=== PATIENT | female | born 1985 | race Caucasian/White ===

== ENCOUNTER 2016-11-15 10:59 | Emergency (ER) | payer OTHER ==
[2016-11-15 11:22] VITALS: BP 153/75
--- NOTE | 2016-11-15 13:13 | UC ---
Osvaldo Jacinto Matthew, scribed for Baljeet Cruz MD on 11/15/16 at 1139 . Throat Pain/Nasal Juanpablo HPI - HPI Summary HPI Summary: A 31 y/o female presents to [facility] [place] with a sore throat since a couple of weeks ago , which has worsened in the last 2 days. Associated symptoms include pain with swallowing, swollen lymph nodes, and headache. The patient denies difficulty swallowing, drooling, and fever. The patient daughter was recently Dx with STREP throat. Her symptoms worsen at night and the patient has increased pain when looking up. PMHx of c-diff. SHx includes ulnar transposition, gallbladder removal, . FHx of graves disease. - History of Current Complaint Chief Complaint: UCGeneralIllness Stated Complaint: SORE THROAT Time Seen by Provider: 11/15/16 11:27 Hx Obtained From: Patient Hx Last Menstrual Period: 2014 ?: No Onset/Duration: Gradual Onset, Lasting Weeks, Still Present Severity: Mild Pain Intensity: 4 Pain Scale Used: 0-10 Numeric Cough: None Associated Signs & Symptoms: Positive: Other - pain with swallowing. Negative: Dysphagia, FB Sensation, Drooling, Fever - Allergies/Home Medications Allergies/Adverse Reactions: Allergies Allergy/AdvReac Type Severity Reaction Status Date / Time No Known Allergies Allergy Verified 11/15/16 11:22 Home Medications: Home Medications Colesevelam HCl [Welchol] 625 mg PO BID 11/15/16 [History Confirmed 11/15/16] Levothyroxine TAB* [Synthroid TAB*] 50 mcg PO DAILY 11/15/16 [History Confirmed 11/15/16] Norethindrone (Contraceptive) [Jolivette] 1 PO DAILY 11/15/16 [History] PMH/Surg Hx/FS Hx/Imm Hx Endocrine History Of: Reports: Thyroid Disease - [facility] - Surgical History Surgical History: Yes Surgery Procedure, Year, and Place: CHOLECYSTECTOMY 2014. LEFT ULNAR NERVE TRANSPOSITION. 2010 - Family History Family History: FHx of graves disease - Social History Alcohol Use: Rare Substance Use Type: None Smoking Status (MU): Never Smoked Tobacco Review of Systems Constitutional: Negative Skin: Negative Eyes: Negative ENT: Sore Throat, Other - Swollen lymph nodes; Pain with swallowing Respiratory: Negative Cardiovascular: Negative Gastrointestinal: Negative Genitourinary: Negative Motor: Negative Neurovascular: Negative Musculoskeletal: Negative Neurological: Headache Psychological: Negative All Other Systems Reviewed And Are Negative: Yes Physical Exam Triage Information Reviewed: Yes Vital Signs: Initial Vital Signs Temp 98.3 F 11/15/16 11:17 Pulse 84 11/15/16 11:17 Resp 16 11/15/16 11:17 BP 153/75 11/15/16 11:17 Pulse Ox 100 11/15/16 11:17 Vital Signs Reviewed: Yes - Additional Comments VITAL SIGNS: Reviewed. GENERAL: Patient is a well developed and nourished female who is lying comfortable in the stretcher. Patient is not in any acute respiratory distress. HEAD AND FACE: Normocephalic EYES: PERRLA, EOMI x 2. EARS: Hearing grossly intact. MOUTH: Oropharynx within normal limits. No trismus, no difficulty swallowing, and no drooling; Minimal Pharyngeal erythema NECK: Supple, trachea is midline, no JVD, no carotid bruit. Right sided swollen lymph node on the neck CHEST: Symmetric, no tenderness at palpation LUNGS: Clear to auscultation bilaterally. No wheezing or crackles. CVS: Regular rate and rhythm, S1 and S2 present, no murmurs or gallops appreciated. ABDOMEN: Soft, non-tender. Bowel sounds are normal. No abdominal abnormal pulsations. EXTREMITIES: Full ROM in all major joints, no edema, no cyanosis or clubbing. NEURO: Alert and oriented x 3. No acute neurological deficits. Speech is normal and follows commands. SKIN: Dry and warm Throat Pain/Nasal Course/Dx - Course Assessment/Plan: A 31 y/o female presents to [facility] – [place] with a sore throat since a couple of weeks ago, which has worsened in the last 2 days. Associated symptoms include pain with swallowing, swollen lymph nodes, and headache. The patient denies difficulty swallowing, drooling, and fever. The patient daughter was recently Dx with STREP throat. Her symptoms worsen at night and the patient has increased pain when looking up. PMHx of c-diff. SHx includes ulnar transposition , gallbladder removal, . FHx of graves disease. Rapid STREP is negative and therefore I believe the patient symptoms are secondly to viral phalangitis. Since the patient does not have trismus, difficulty swallowing, and no fever the patient will be discharged home with follow-up from their PCP. The patient is hemodynamically stable and A&Ox3. - Differential Dx/Diagnosis Provider Diagnoses: Viral pharyngitis Discharge - Discharge Plan Condition: Stable Disposition: HOME Patient Education Materials: Pharyngitis (ED) Referrals: Natan Chung NP [Primary Care Provider] - 4 Days Additional Instructions: Please follow-up with your primary care physician. The documentation as recorded by the Osvaldo damon Matthew accurately reflects the service I personally performed and the decisions made by , Baljeet Cruz MD.
== END 2016-11-15 13:00 | disposition home or self-care (01) ==
LOC: UCEAST 10:59
DX: J02.9 Acute pharyngitis, unspecified (principal); E06.3 Autoimmune thyroiditis; Z90.49 Acquired absence of other specified parts of digestive tract
CPT/HCPCS: 87651; 99201; G0463

== ENCOUNTER 2017-11-14 13:08 | Emergency (ER) | payer OTHER ==
[2017-11-14 14:19] VITALS: BP 100/58
--- NOTE | 2017-11-14 16:01 | UC ---
Thomas Jacinto Gabriel, scribed for Jannette Ely MD on 11/14/17 at 1452 . FLU HPI - HPI Summary HPI Summary: This patient is a 32 year old F [place] [facility] [place] partner with a chief complaint of flu like symptoms that began yesterday around 1900. Pt is 9 weeks and called her OB who suggested she come in for a flu test. The patient rates the pain 4/10 in severity. Symptoms alleviated by Tylenol. Patient reports fever of 101.8, myalgia, chills, and diarrhea. Patient denies cough, nasal discharge, dysuria, urinary frequency, ear pain, and sore throat. . Her younger child is currently ill. - History of Current Complaint Chief Complaint: UCGeneralIllness Stated Complaint: FEVER, HEADACHE Time Seen by Provider: 11/14/17 14:46 Hx Obtained From: Patient Hx Last Menstrual Period: 09/14/17 Onset/Duration: Lasting Days - 1, Still Present Severity Currently: Moderate Severity Initially: Moderate Pain Intensity: 4 Pain Scale Used: 0-10 Numeric Associated Signs & Symptoms: Positive: Fever, F/C, Myalgia, Diarrhea. Negative : Sore Throat - Allergy/Home Medications Allergies/Adverse Reactions: Allergies Allergy/AdvReac Type Severity Reaction Status Date / Time No Known Allergies Allergy Verified 11/14/17 14:08 Home Medications: Home Medications Acetaminophen [Acetaminophen Extra Strength] 1,000 mg PO ONCE 11/14/17 [History Confirmed 11/14/17] Magnesium Glycinate [Mag Glycinate] 200 mg PO DAILY 11/14/17 [History Confirmed 11/14/17] PMH/Surg Hx/FS Hx/Imm Hx Endocrine History: Thyroid Disease - basil's GI/ History: Other Other GI/ History: IBS - Surgical History Surgical History: Yes Surgery Procedure, Year, and Place: CHOLECYSTECTOMY 2014. LEFT ULNAR NERVE TRANSPOSITION. 2010 - Family History Family History: FHx of graves disease - Social History Occupation: Employed Full-time - [employer] Lives: With Family Alcohol Use: None Substance Use Type: None Smoking Status (MU): Never Smoked Tobacco Review of Systems Constitutional: Fever, Chills Gastrointestinal: Diarrhea - history of IBS, tendency to diarrhea whenever she feels ill. Onset today, has had 3 loose stools this afternoon. Musculoskeletal: Myalgia Is Patient Immunocompromised?: No All Other Systems Reviewed And Are Negative: Yes Physical Exam Triage Information Reviewed: Yes Appearance: Ill-Appearing - looks mildly unwell, well hydrated. Vital Signs: Initial Vital Signs Temp 98.9 F 11/14/17 14:10 Pulse 103 11/14/17 14:10 Resp 20 11/14/17 14:10 BP 100/58 11/14/17 14:10 Pulse Ox 99 11/14/17 14:10 Eyes: Positive: Conjunctiva Clear ENT: Positive: Pharynx normal Neck: Positive: Supple, Nontender, No Lymphadenopathy Respiratory: Positive: Lungs clear, Normal breath sounds Cardiovascular: Positive: RRR, No Murmur Abdomen Description: Positive: Nontender, No Organomegaly, Soft Musculoskeletal Exam: Normal Neurological: Positive: Alert, Muscle Tone Normal Psychological Exam: Normal Skin Exam: Normal Flu Course/Dx - Course Course Of Treatment: Pt medications reviewed this visit. - Differential Dx/Diagnosis Differential Diagnosis/HQI/PQRI: Influenza, Upper Respiratory Infection Provider Diagnoses: viral illness, flu negative. Discharge - Sign-Out/Discharge Documenting (check all that apply): Discharge - Discharge Plan Condition: Stable Disposition: HOME Patient Education Materials: Viral Syndrome (ED) Referrals: Candelaria Garrett MD [Primary Care Provider] - Additional Instructions: Influenza testing is negative. Continue to control fever with use of acretaminophen and ensure high intake of fluids. Follow up if you have increasing symptoms such as cough or breathlessness, or fever persists beyond 4 days. Your symptoms are consistent with a viral illness which will likely be self- limiting. - Billing Disposition and Condition Condition: STABLE Disposition: HOME The documentation as recorded by the Thomas damon Gabriel accurately reflects the service I personally performed and the decisions made by me, Jannette Ely MD.
== END 2017-11-14 16:08 | disposition home or self-care (01) ==
LOC: UCEAST 13:08
DX: O26.891 Other specified pregnancy related conditions, first trimester (principal); B34.9 Viral infection, unspecified; Z3A.09 9 weeks gestation of pregnancy; E06.3 Autoimmune thyroiditis; K58.9 Irritable bowel syndrome, unspecified; E55.9 Vitamin D deficiency, unspecified; E83.42 Hypomagnesemia
CPT/HCPCS: 36415; 82306; 83735; 84439; 84443; 84479; 84481; 87502; 99211; G0463

== ENCOUNTER 2018-06-19 00:55 | Inpatient (IN) | payer OTHER ==
[2018-06-19] MEDS ORDERED: Penicillin G Potassium IV* 5,000,000 UNITS in NS 0.9% 100 ML* 100 ML IVPB ONE (01:28)
[2018-06-19] MEDS ORDERED: Penicillin G Potassium IV* 5 MILLION.UNITS VIAL ONE (01:30)
--- NOTE | 2018-06-19 01:38 | HP ---
General Information - Reason for Visit Irreg ctx throughout the day, but increased intensity about 2-3 hrs ago. Pt with h/o and subsequent . Desires another . - General Information Maternal Age: 33 Grav: 3 Para: 2 SAB: 0 IEA: 0 Estimated Due Date: 06/21/18 Determined By: LMP Gestational Age in Weeks/Days: 39+5 wks Maternal Blood Type and Rh: O Positive - Results this Serology/RPR Result: Non-Reactive Rubella Result: Immune HBsAg Result: Negative HIV Result: Negative GBS Culture Result: Positive Past Medical History Delivery History: Hx C/Section, Hx Uncomplicated Vaginal Delivery Pertinent Past Medical History: See Records Past Medical History Comment: Dwight's, IBS, migraines Pertinent Past Surgical History: See Records Past Surgical History Comment: , cholecytectomy, ulnar nerve Pertinent Family History: Non-Contributory - Antepartal Records Antepartal Records: Reviewed, Complicated by: - h/o and Review of Systems Constitutional: Uncomfortable CV Complaint: No Respiratory: Shortness of Breath: No Gastrointestinal: No Nausea/Vomiting Genitourinary: No Dysuria, No Bleeding, No Leaking Fluid Musculoskeletal: Contractions Neurological: No Headache Movement: Normal Exam Allergies/Adverse Reactions: Allergies No Known Allergies Allergy (Verified 11/14/17 14:08) 156/88 (during ctx), afebrile - Measurements Height: 5 ft 7 in Weight: 161 lb Weight in lbs: 161.936494 Body Mass Index (BMI): 25.2 Pre- Weight: 124 lb Weight Gained This : 37 lbs and 0 ozs - Exam Breast: Breast Exam Deferred Heart: Normal Rhythm/Heart Sounds HEENT: No Significant Findings Lungs: Clear Bilaterally Rectal: Rectal Exam Deferred - Abdominal Exam Abdomen Exam: Non-Tender, Fundal Height Consistent with Dates - Ultrasound/Biophysical Profile Ultrasound Status: Not Done Targeted Exam Findings Estimated Weight: 7lb 8oz Cervical Exam: 6cm Effacement: 90% Station: 0 Presenting Part: Vertex Membrane Status: Intact EFM Findings - External Monitor Findings Baseline Heart Rate: 125 External Monitor Findings: Accelerations Present, No Pattern of Variable or Late Decelerations, Variability Moderate Contractions: Regular, Strong Contraction Frequency: Q2-3 Assessment/Plan - Assessment 39+5 wks with h/o C/S and in active labor. Very reassuring status. Desires another TOLAC. We reviewed risks including emergent C/S and uterine rupture, possible injury, etc and pt desires to proceed. - Obstetrical Risk Factors Obstetrical Risk Factors: GBS Positive, Previous C/Section in Labor - Plan Plan: Antibiotic Prophylaxis, Admit - Anticipate Vaginal Delivery Plan Comment: Dr. Doran from anesthesia aware of and will come in to place epidural. - Date/Time of Admission Date of Admission: 06/19/18 Time of Admission: 01:39
[2018-06-19] MEDS ORDERED: OBEPIDURAL* 250 ML EPIDURAL ONE (01:42)
[2018-06-19] MEDS ORDERED: fentaNYL* 50 MCG/ML 2 ML VIAL (100 MCG VIAL) ONE (01:52)
[2018-06-19 01:55] LABS: ABS Basophils 0 10^3/ul (0-0.2); ABS Eosinophils 0.1 10^3/ul (0-0.6); ABS Lymphocytes 2.1 10^3/ul (1.0-4.8); ABS Monocytes 0.7 10^3/ul (0-0.8); ABS Neutrophils 7.7 10^3/ul (1.5-7.7); ABS Nucleated RBC 0 10^3/ul; Eosinophil % 0.6 % (0-6); Hematocrit 40 % (35-47); Lymphocyte % 20.1 % (25-47); Mean Corpuscular HGB Conc 33 g/dl (31-36); Mean Corpuscular Hemoglobin 28 pg (27-31); Mean Corpuscular Volume 85 fL (80-97); Mean Platelet Volume 8.4 um3 (7.4-10.4); Nucleated Red Blood Cells % 0; Platelet Count 229 10^3/ul (150-450); Red Blood Count 4.68 10^6/ul (4.00-5.40); Red Cell Distribution Width 16 % (10.5-15); White Blood Count 10.7 10^3/ul (3.5-10.8)
[2018-06-19] MEDS ORDERED: Sodium Citrate/Citric Acid* 15 ML UDC PO PRN (02:36)
[2018-06-19] MEDS ORDERED: Famotidine TAB* 20 MG PO PRN (02:36)
[2018-06-19] MEDS ORDERED: Phenylephrine IV* 40 MCG/ML 10 ML SYRINGE IV PUSH PRN ×2 (02:36)
[2018-06-19] MEDS ORDERED: OBEPIDURAL* 250 ML EPIDURAL SCH (03:00)
[2018-06-19] MEDS ORDERED: Penicillin G Potassium IV* 2,500,000 UNITS in NS 0.9% 100 ML* 100 ML IVPB SCH (05:30)
[2018-06-19] MEDS ORDERED: Oxytocin in LR* 20 UNITS/1,000 ML BAG IVPB ONE (05:48)
[2018-06-19] MEDS ORDERED: Oxytocin in LR* 20 UNITS/1,000 ML BAG IVPB SCH ×2 (07:00→08:00)
[2018-06-19] MEDS ORDERED: Dibucaine 1% 28.35 GM TUBE PR PRN (07:22)
[2018-06-19] MEDS ORDERED: Acetaminophen TAB* 325 MG PO PRN (07:22)
[2018-06-19] MEDS ORDERED: Witch Hazel PAD* JAR TOPICAL PRN (07:22)
[2018-06-19] MEDS ORDERED: Levothyroxine TAB* 50 MCG TAB PO SCH (07:30)
--- NOTE | 2018-06-19 07:32 | PROCNOTE ---
[facility] OB: Delivery Note - Delivery A Date of : 06/19/18 Time of : 06:59 Sex: Male Score 1 Minute: 8 Score 5 Minutes: 9 Gestational Age in Weeks and Days at Delivery: 39 Weeks and 5 Days Delivery Method: Spontaneous Vaginal Labor: Spontaneous Did Patient attempt ?: Yes, Successful Amniotic Fluid: Clear Estimated Blood Loss: 400 Anesthesia/Analgesia: CEI for Labor Delivered By: Lorna Wolff - Nursery Level of Nursery: Regular/Bedside - Perineum Perineal Injury: 2nd Degree Perineal Injury Comment: Repaired with 3-0 Vicryl Rapide Perineal Repair: By Delivering Practioner - Events Delivery Events of Note: Pitocin During Labor, Full Course of Antibiotics Delivery Events of Note Comment: Pt admitted at 5+ cm, active labor. PCN started, AROM after about 2 hours due to some decels, clear fluid. Pt received epidural which worked well. Pt reached C/C/+1 and pushed for about 1.5 hrs. Head delivered in a controlled fashion, shoulders delivered easily. Nuchal cord x1 reduced. Infant placed on mother's abd. Placenta delivered spontaneously and intact.
[2018-06-19] MEDS ORDERED: Levothyroxine TAB* 75 MCG TAB PO SCH (08:00)
[2018-06-19] MEDS ORDERED: Simethicone TAB* 80 MG TAB.CHEW PO SCH (08:30)
[2018-06-19] MEDS: Docusate CAP* 100 MG PO SCH ×3 (09:41→20:05)
[2018-06-19] MEDS: Ibuprofen TAB* 600 MG PO PRN ×2 (09:42→16:33)
[2018-06-20] MEDS: Ibuprofen TAB* 600 MG PO PRN ×2 (05:07→16:38)
[2018-06-20 06:53] LABS: ABS Basophils 0 10^3/ul (0-0.2); ABS Eosinophils 0.1 10^3/ul (0-0.6); ABS Lymphocytes 1.7 10^3/ul (1.0-4.8); ABS Monocytes 0.4 10^3/ul (0-0.8); ABS Neutrophils 5.9 10^3/ul (1.5-7.7); ABS Nucleated RBC 0 10^3/ul; Eosinophil % 0.8 % (0-6); Hematocrit 35 % (35-47); Hemoglobin 11.6 g/dl (12.0-16.0); Lymphocyte % 20.7 % (25-47); Mean Corpuscular HGB Conc 33 g/dl (31-36); Mean Corpuscular Hemoglobin 28 pg (27-31); Mean Corpuscular Volume 85 fL (80-97); Mean Platelet Volume 8.2 um3 (7.4-10.4); Nucleated Red Blood Cells % 0; Platelet Count 185 10^3/ul (150-450); Red Blood Count 4.09 10^6/ul (4.00-5.40); Red Cell Distribution Width 16 % (10.5-15); White Blood Count 8.1 10^3/ul (3.5-10.8)
[2018-06-20] MEDS ORDERED: Ferrous Gluconate TAB* 324 MG TAB PO SCH (09:00)
[2018-06-20] MEDS: Docusate CAP* 100 MG PO SCH ×2 (09:37→13:28)
[2018-06-20] MEDS ORDERED: Levothyroxine TAB* 75 MCG TAB PO SCH (12:30)
[2018-06-21] MEDS: Ibuprofen TAB* 600 MG PO PRN ×2 (00:10→08:25)
[2018-06-21 08:45] VITALS: BP 134/74
[2018-06-21] MEDS: Docusate CAP* 100 MG PO SCH (09:34)
== END 2018-06-21 11:14 | disposition home or self-care (01) | DRG 807 ==
LOC: MCHOBOUT 00:55 → MCHOB 01:17
PROVIDERS: ADMIT Obstetrics & Gynecology; ATTEND Obstetrics & Gynecology
PROC: 10E0XZZ Delivery of Products of Conception, External Approach (ICD-10-PCS; principal; 2018-06-19)
PROC: 0KQM0ZZ Repair Perineum Muscle, Open Approach (ICD-10-PCS; 2018-06-19)
PROC: 10907ZC Drainage of Amniotic Fluid, Therapeutic from Products of Conception, Via Natural or Artificial Opening (ICD-10-PCS; 2018-06-19)
DX: O99.824 Streptococcus B carrier state complicating childbirth (principal); Z37.0 Single live birth; O70.1 Second degree perineal laceration during delivery; O99.284 Endocrine, nutritional and metabolic diseases complicating childbirth; O34.211 Maternal care for low transverse scar from previous cesarean delivery; E03.8 Other specified hypothyroidism; Z3A.39 39 weeks gestation of pregnancy
CPT/HCPCS: 36415; 85025; 86850; 86900; 86901; A9270-GY; J2540; J3010